=== PATIENT | female | born 1950 | race Caucasian/White ===

== ENCOUNTER → 2024-05-24 12:42 | Day surgery (SDC) | payer MEDICARE, OTHER, SELFPAY ==
[2024-05-24 14:13] LABS: ALT (SGPT) 25 U/L (0-35); AST (SGOT) 25 U/L (14-36); Albumin 4.4 g/dl (3.5-5.0); Alkaline Phosphatase 107 U/L (38-126); Blood Urea Nitrogen 26 mg/dl (7-17); Calcium 9.8 mg/dl (8.4-10.2); Carbon Dioxide 18 mmol/L (22-30); Chloride 99 mmol/L (98-107); Glucose 114 mg/dl (70-99); Potassium 5.7 mmol/L (3.5-5.1); Sodium 127 mmol/L (135-145); Total Bilirubin 0.8 mg/dl (0.2-1.3); eGFR 53.39
== END ==
LOC: SDSPAT 12:42
PROVIDERS: ATTENDING PHYSICIAN Student in an Organized Health Care Education/Training Program; FAMILY PHYSICIAN Family Medicine
DX: Z01.810 Encounter for preprocedural cardiovascular examination (principal); Z01.812 Encounter for preprocedural laboratory examination
CPT/HCPCS: 80053; 85025; 36415; 93005

== ENCOUNTER 2024-06-20 08:12 | Inpatient (IN) | payer MEDICARE, OTHER, SELFPAY ==
[2024-05-24 14:09] VITALS: BMI 35.9
--- NOTE | 2024-06-11 16:32 | PTCARENOTE ---
Feli Fuller at Surgeon office made aware.
[2024-06-18] VITALS (10 sets, daily range): BP systolic 98–144; BP diastolic 53–70; BMI 35.9
[2024-06-18 10:33] LABS: Glucose - Point of Care 166 mg/dl (70-99)
[2024-06-18] MEDS: CELEBREX 200 MG PO (10:49)
[2024-06-18] MEDS: TYLENOL 1000 MG PO (10:49)
[2024-06-18] MEDS: NORMOSOL-R 1000 IV (10:50)
[2024-06-18 12:42] LABS: Glucose - Point of Care 144 mg/dl (70-99)
[2024-06-18 13:54] LABS: Glucose - Point of Care 134 mg/dl (70-99)
--- NOTE | 2024-06-18 16:53 | W.PN.UPDATE ---
Update Note
Progress Note Update
s/p left tibiotalarcalcaneal arthrodesis with intramedullary nail
-NWB LLE, PT/OT consults
-Pain control prn, home meds sent to pharmacy including oxycodone and gabapentin for pain management
-Dressings C/D/I
-Ancef x 3 does or until discharge if D/Driss prior to 24 hours
-Will follow
[2024-06-18 16:56] LABS: Glucose - Point of Care 191 mg/dl (70-99)
[2024-06-18 17:43] LABS: Glucose - Point of Care 193 mg/dl (70-99)
--- NOTE | 2024-06-18 17:43 | HPS.HSE ---
Family Physician
-
Family Physician: INTERVIEWE UNKNOWN - PT NOT
Chief Complaint
-
Status post left tibiotalar calcaneal arthrodesis
History of Present Illness
73-year-old female status post left tibiotalar calcaneal arthrodesis with intramedullary nail who is currently in PACU. She currently is awake and oriented x 3 states has some slight discomfort to her left ankle but is in a current posterior OCL.
She had a nerve block while in the OR. She is able to wiggle her toes but currently does not have sensation yet back. Her toes are pink and warm with positive cap refill. She denies headache, sore throat, fever, chills, chest pain, palpitations,
cough, shortness of breath, abdominal pain, nausea, vomiting, diarrhea, urinary symptoms.
She has past medical history DVT post TKR 2006, HTN, HLD, DM2, normocytic anemia, iron deficiency anemia, hypothyroidism, chronic seasonal allergies, chronic postnasal drip, cardiac murmur, basal cell CA, diverticulitis, eczema.
Medical History
Past Medical History
Past Medical History: Reports Other
Additional Past Medical History:
DVT post TKR 2006
HTN
HLD
DM2
normocytic anemia
iron deficiency anemia
hypothyroidism
chronic seasonal allergies
chronic postnasal drip
cardiac murmur
basal cell CA,
diverticulitis
eczema
Past Surgical History: Reports Other
Additional Past Surgical History:
Right TKR 2019
Left TKR 2007
Social History
Tobacco: Non-smoker
Alcohol: None
Drug: None
Personal:
Living: With Family
Employment: Retired
Family History
Family History: Other (1 brother RA 50s,, father IN age 50s, mother valvular heart issues also history RA, 1 sister living history RA, 1 brother living and healthy)
Allergies / Home Medications
Allergies reflects when Allergies were last updated in [employer].
Home Medications with original date entered in [employer]
Allergy/Medication List:
Allergies
Allergy/AdvReac Type Severity Reaction Status Date / Time
crab Allergy Severe anaphylacti Verified 06/18/24 10:35
c
Penicillins Allergy Intermediate Hives Verified 06/18/24 10:35
iodine Allergy Unknown Verified 06/18/24 10:35
Home Medications
Calcium + Vitamin D 1 dose PO DAILY 05/23/24
Tumeric 500 mg PO DAILY 05/23/24
albuterol 90 mcg/actuation aerosol inhaler 1 mcg inhalation PRN PRN congestion/cough 05/23/24
aspirin 81 mg tablet 81 mg PO DAILY 05/23/24
atenolol 25 mg tablet 25 mg PO DAILY 05/23/24
atorvastatin 20 mg tablet 20 mg PO HS 05/23/24
desloratadine 5 mg tablet 5 mg PO DAILY 05/23/24
iron 1 tab PO DAILY 05/23/24
levothyroxine 112 mcg capsule 112 mcg PO DAILY 05/23/24
lisinopril 20 mg tablet 20 mg PO DAILY 05/23/24
metformin 500 mg tablet 500 mg PO BID 05/23/24
vitamins A,C,W-[id number]-fyiyqs 2,148 mcg-113 mg-45 mg-17.4 mg tablet (PreserVision AREDS) 1 tab PO DAILY 05/23/24
Review of Systems
-
History Source: Patient
A 12 point ROS was completed and negative except as noted: Yes
Constitutional: Denies Fever, Fatigue or Chills
EENT: Denies Sore Throat or Mouth Swelling
Respiratory: Denies Cough or Trouble Breathing
Cardiac: Denies Chest Pain, Diaphoresis, Palpitations or Syncope
Abdomen/GI: Denies Abdominal Pain, Nausea, Vomiting, Diarrhea, Constipated, Bloody Stools or Black Stools
: Denies Dysuria, Frequency, Flank Pain, Incontinence, Difficulty Voiding or Urgency
Musculoskeletal: Reports Joint Pain; Denies Muscle Pain
Skin: Denies Itching or Rash
Neurological: Denies Dizzy, Headache or Weakness
Endocrine: Reports No Symptoms
Hematologic/Lymphatic: Reports No Symptoms
Psych: Reports Calm
Physical Exam
Vital Signs
Vital Signs
Temp Pulse Resp BP Pulse Ox
97.6 F 63 16 144/70 97
06/18/24 10:42 06/18/24 10:42 06/18/24 10:42 06/18/24 10:42 06/18/24 10:42
Physical Exam
General: Comfortable and Conversant; No Fever or Chills
HEENT: NormoCephalic, Anicteric, Moist mucous membranes and PERRLA
Respiratory: Clear; No Wheezes, Rales or Rhonchi
Cardiac: S1/S2, Regular Rhythm and Murmur (2/6 systolic increased tricuspid area); No Rub, Gallop or Peripheral Edema
Breast: Deferred by me
GI: Soft, Non Tender, Non Distended, Normal Bowel Sounds and No Hepatosplenomegaly
Genito-urinary: Deferred by me
Musculoskeletal: No Clubbing, No Cyanosis and Other (Left lower extremity with posterior OCL splint from knee to foot, toes pink, warm no current sensation yet due to nerve block in OR, although is able to wiggle toes); No Edema, Left Upper
Extremity, Edema, Right Upper Extremity or Edema, Right Lower Extremity
Skin: Warm and Dry; No Rash
Neuro: AO x 3, Nonfocal/grossly intact, Cranial Nerves Intact and No Sensory Deficits; No Slurred Speech, Facial Droop or Tremors
Psych: Calm
Data Reviewed
-
Lab Data: Labs Reviewed by me
Impression/Plan
-
Impression/plan:
obs post procedure MedSurg
#Status post TTC arthrodesis with IM nailing
-Consult podiatry-Dr. Tameka
-Nonweightbearing left lower extremity
-Pain control with oxycodone/gabapentin
-Ancef IV x 3 doses per podiatry
-Consult PT/OT/case management lives in house with has chair glide to first floor where she will be sleeping
#Anemia-normocytic reports diagnosed in March 2024
#Iron deficiency
Hgb 9.7 on 06/14/2024
-Will repeat CBC this evening along with CMP
-Continue oral iron
-States has had colon Endo March 2024 that were negative
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
-Patient will be on prophylactic subcu Lovenox for DVT prevention
#HTN�benign
Continue lisinopril 20 mg daily, atenolol 25 mg daily with hold parameters
-Continue aspirin 81 mg daily
#DM 2
-Accu-Cheks with SSI, check HgbA1c
Hold metformin 500 mg twice daily
#HLD
Continue atorvastatin 20 mg at bedtime
#Hypothyroidism
-Continue levothyroxine 112 mcg p.o. daily
#Chronic postnasal drip
#Chronic allergies
-Continue desloratadine or equivalent
#Cardiac murmur hx
Other PMH:
Hx diverticulitis
Basal cell CA
Eczema
DVT prophylaxis
Subcu Lovenox
Full code
--- NOTE | 2024-06-18 17:44 | W.PN.UPDATE ---
Update Note
Progress Note Update
This serves as an addendum to the H&P dictated by Sumi Palomo on 06/18/2024.
I saw and examined the patient.
The UPHOLSTERY TECH or PA's note was reviewed and I agree with the note.
Comment:
Patient 73 years old female came into the hospital for elective podiatry surgery. She underwent left tibial talocalcaneal arthrodesis with intramedullary nail today on 06/18. Patient postop unremarkable and podiatry asked her to stay in the
hospital in observation. She currently denies any chest pain or shortness of breath. No fevers or chills. She was referred to hospitalist for further evaluation.
Physical exam:
General: Well Developed, Well Nourished and No Apparent Distress
HEENT: Normocephalic, Atraumatic and Moist Mucous Membranes
Respiratory: Clear to Auscultation; Negative Wheezes, Rales or Rhonchi
Cardiac: Regular Rhythm and S1/S2
GI: Soft, Nontender and Nondistended
Musculoskeletal: Postop findings in the left lower extremity. No Clubbing, No Cyanosis and No Edema
Neuro: Awake, Alert and Oriented
Psych: Calm
A/P:
Status post L tibiotalarcalcaneal arthrodesis with intramedullary nail--> pain control, nonweightbearing status left lower extremity, PT OT, antibiotics, podiatry consult.
--- NOTE | 2024-06-18 18:35 | PTCARENOTE ---
Patient received from CHEMICAL LIBRARIAN Tania @18:35 with Splint on lower left extremity (adaptic, 4x4s, kerlix, lap roll, splint and melanie wrap), VSS; will give detailed report to nightshift RN from the verbal report received from CHEMICAL LIBRARIAN.
[2024-06-18] MEDS: ANCEF 5 IV (21:18)
[2024-06-18] MEDS: LIPITOR 20 MG PO (21:18)
[2024-06-18 22:37] LABS: ALT (SGPT) 41 U/L (0-35); AST (SGOT) 50 U/L (14-36); Albumin 4.2 g/dl (3.5-5.0); Alkaline Phosphatase 122 U/L (38-126); Blood Urea Nitrogen 36 mg/dl (7-17); Calcium 9.6 mg/dl (8.4-10.2); Carbon Dioxide 18 mmol/L (22-30); Chloride 99 mmol/L (98-107); Estimated Creatinine Clearance 46 ml/min; Glucose 245 mg/dl (70-99); Potassium 5.7 mmol/L (3.5-5.1); Sodium 133 mmol/L (135-145); Total Bilirubin 0.6 mg/dl (0.2-1.3); Total Protein 6.8 g/dl (6.3-8.2); eGFR 48.09
[2024-06-18 22:44] LABS: % Basophils 0.2 % (0-2); % Immature Granulocytes 0.5 % (0-0.5); % Lymphocytes 4.1 % (20.5-51.1); % Monocytes 0.7 % (1.7-9.3); % Neutrophils 94.5 % (42.2-75.2); Absolute Immature Granulocytes 0.1 10^3/uL (0-0.05); Absolute Lymphocytes 0.8 10^3/uL (1.2-3.4); Absolute Monocytes 0.1 10^3/uL (0.1-0.6); Hematocrit 28.5 % (37.0-47.0); Hemoglobin 9.6 g/dL (12.0-16.0); Mean Corp Hgb Conc. 33.7 g/dL (33.0-37.0); Mean Corpuscular Hgb 30.6 pg (27.0-31.0); Mean Corpuscular Volume 90.8 fL (81.0-99.0); Mean Platelet Volume 9.2 fL (7.4-10.4); Nucleated Red Blood Cells % 0 %; Platelet Count 361 10^3/uL (130-400); Red Blood Cell Count 3.14 10^6/uL (4.20-5.40); Red Cell Dist. Width 13.6 % (11.5-14.5)
[2024-06-18] MEDS: NEURONTIN 300 MG PO (23:07)
[2024-06-18] MEDS: LOVENOX 40 MG SC (23:08)
[2024-06-18 23:47] LABS: Hepatitis C Antibody Negative (Negative)
[2024-06-19] VITALS (7 sets, daily range): BP systolic 97–119; BP diastolic 51–68; PULSE 65–69; O2SAT 94–96
[2024-06-19] MEDS: ANCEF 5 IV ×2 (05:03→13:10)
[2024-06-19] MEDS: SYNTHROID 112 MCG PO (05:03)
--- NOTE | 2024-06-19 07:22 | W.PN.UPDATE ---
Update Note
Progress Note Update
Patient is resting comfortably in bed this morning. She reports that her pain has been well controlled. She was able to get out of bed to the commode twice last night.
Directed exam of left lower extremity reveals a splint in place. No signs of surrounding skin breakdown. She is able to wiggle her toes. Sensation intact to light touch. Cap refill<2secs
POD#1 Left tibiotalar calcaneal arthrodesis with large bone graft harvest with intramedullary nail fixation under the direction of Dr. English
--NWB LLE. Ambulate with the assistance of a walker
--PT/OT
--Pain control as needed. Elevate and ice as needed
--Ancef while in house or x3 doses
--Maintain splint
--Lovenox while in house, can discharge on aspirin 325mg daily x4 weeks for DVT prophylaxis
--Postop pain medications have been sent to patient's outpatient pharmacy
--Follow up outpatient at scheduled appointment
--Ok for discharge when stable
[2024-06-19] MEDS: NEURONTIN 300 MG PO ×3 (08:07→21:28)
[2024-06-19] MEDS: LOW STRENGTH ASPIRIN 81 MG PO (08:07)
[2024-06-19] MEDS: CLARITIN CHILDREN'S 5 MG PO (08:08)
--- NOTE | 2024-06-19 11:19 | CM ---
Addendum entered by May Gan 06/19/24 12:02:
VN recs per therapy
Referral to [facility] and accepted for service SOC 06/21
Walker issued by therapy
TT/Dr Bliss requesting hard script
VN order on chart
Discharge Disposition- home with [facility] and new WW
Fax- (fax will only work starting with 1 per [facility])
Original Note:
CM met with pt bedside
Pt resides with her spouse in a 3SH, enters through basement level, OSTE
Stair glide to 1st floor where she will be staying while recovering
Pt is typically independent with her ADLs without any ADs, drives+
Has a SPC for use as needed, also has a WC, no walker
No financial insecurities
PCP- Gisel Garay
Rx- [facility] [place]
PT/OT pending
Pt is hopeful for home with [facility]
Will await outcome of evals
Discharge Disposition- home, likely with VN
--- NOTE | 2024-06-19 12:49 | W.PN.HOSP.TC ---
Today's Communication/Plan
-
Insulin management. Lokelma. Fluid restriction. IVF.
Assessment / Plan
Assessment / Plan
Physical exam:
General: Well Developed, Well Nourished and No Apparent Distress
HEENT: Normocephalic, Atraumatic and Moist Mucous Membranes
Respiratory: Clear to Auscultation; Negative Wheezes, Rales or Rhonchi
Cardiac: Regular Rhythm and S1/S2
GI: Soft, Nontender and Nondistended
Musculoskeletal: Postop findings in the left lower extremity. No Clubbing, No Cyanosis and No Edema
Neuro: Awake, Alert and Oriented
Psych: Calm
A/P:
#Status post TTC arthrodesis with IM nailing
-Consulted podiatry-Dr. English
-Nonweightbearing left lower extremity
-Pain control with oxycodone/gabapentin
-Ancef IV x 3 doses per podiatry
-Consult PT/OT/case management
-Interface Analyst/Ortho has cleared her for discharge today but there are several metabolic abnormalities that preclude her to go home including hyperglycemia, hyperkalemia, increased LFTs, renal insufficiency, hyponatremia, therefore she will need to be
monitored and manage accordingly. Of note, electrolyte abnormalities were noted on labs from last night so stat BMP was ordered, but since nothing was given last night, I expect the abnormalities would persist. Obtain twelve-lead EKG. IV fluids
gentle hydration while limit oral free water intake.
-Hold JESSICA inhibitor, statins, acetaminophen, and NSAIDs.
-Lokelma 10 g p.o. x 1 today if hyperkalemia persist.
-Discussed with at bedside
#Anemia-normocytic reports diagnosed in March 2024
#Iron deficiency
Hgb 9.7 on 06/14/2024--> 9.6 today
-Will repeat CBC this evening along with CMP
-Continue oral iron
-States has had colon Endo March 2024 that were negative
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
-Patient will be on prophylactic subcu Lovenox for DVT prevention
#HTN�benign
Continue lisinopril 20 mg daily, atenolol 25 mg daily with hold parameters. Hold lisinopril due to renal failure and hyperkalemia
-Continue aspirin 81 mg daily
#DM 2
-Start Accu-Cheks with SSI moderate coverage today 06/19, check HgbA1c in am
Cont hold metformin 500 mg twice daily and resum in am
#HLD
Continue atorvastatin 20 mg at bedtime
#Hypothyroidism
-Continue levothyroxine 112 mcg p.o. daily
#Chronic postnasal drip
#Chronic allergies
-Continue desloratadine or equivalent
#Cardiac murmur hx
Other PMH:
Hx diverticulitis
Basal cell CA
Eczema
DVT prophylaxis
Subcu Lovenox
Full code
Total time spent on today's encounter was 52 minutes which included time spent in counseling the patient/family regarding diagnosis and treatment plan as listed above, goals of care, and symptom management. Case was discussed with nursing staff,
specialists, and care coordinators/case management. All labs and imaging personally reviewed by me. Remainder the time spent in detailed review of previous records, lab data, imaging, and other medical provider documentation.
Anticipated Discharge: 24 - 48 hours
Subjective/Interval History
-
Date of Service: June 19, 2024
Patient mild discomfort in her foot. Denies chest pain or shortness of breath. Afebrile. She tells me that she is 'borderline diabetic'.
Objective Data
-
Vital Signs:
Vital Signs
Temp Pulse Resp BP Pulse Ox
97.7 F 66 18 108/51 98
06/19/24 11:05 06/19/24 11:05 06/19/24 11:05 06/19/24 11:05 06/19/24 11:05
I&O
06/18/24 06/19/24 06/20/24
06:59 06:59 06:59
Intake Total 710 / 710
Balance 710 / 710
[2024-06-19] MEDS: LOKELMA 10 GRAM PO (13:10)
[2024-06-19] MEDS: NSS 1000 IV (13:31)
[2024-06-19 14:14] LABS: ALT (SGPT) 47 U/L (0-35); AST (SGOT) 47 U/L (14-36); Albumin 4.1 g/dl (3.5-5.0); Alkaline Phosphatase 121 U/L (38-126); Blood Urea Nitrogen 39 mg/dl (7-17); Calcium 9.5 mg/dl (8.4-10.2); Carbon Dioxide 20 mmol/L (22-30); Chloride 99 mmol/L (98-107); Estimated Creatinine Clearance 40 ml/min; Glucose 209 mg/dl (70-99); Sodium 133 mmol/L (135-145); Total Bilirubin 0.6 mg/dl (0.2-1.3); Total Protein 6.6 g/dl (6.3-8.2); eGFR 39.97
[2024-06-19 15:16] LABS: Osmolality Urine 279 mOsm/kg (300-900); Urine Sodium 28 mmol/L (30-90)
[2024-06-19 16:51] LABS: Glucose - Point of Care 209 mg/dl (70-99)
[2024-06-19] MEDS: NOVOLOG FLEXPEN-MODERATE RESISTANCE 3 UNITS SC (16:56)
[2024-06-19] MEDS: LOVENOX 40 MG SC (16:57)
[2024-06-19 21:54] LABS: Glucose - Point of Care 160 mg/dl (70-99)
[2024-06-20] MEDS: NSS 1000 IV (01:19)
[2024-06-20] MEDS: SYNTHROID 112 MCG PO (05:30)
--- NOTE | 2024-06-20 07:44 | W.PN.UPDATE ---
Update Note
Progress Note Update
Ms. Moody is POD2 following her left tibiotalar calcaneal arthrodesis performed by Dr. English. She is resting comfortably in bed this morning, and endorses minimal pain in her ankle. She was kept overnight due to metabolic abnormalities.
Directed exam of left lower extremity reveals a splint in place. No signs of surrounding skin breakdown. She is able to wiggle her toes. Sensation intact to light touch. Cap refill<2secs
POD2 Left tibiotalar calcaneal arthrodesis with large bone graft harvest with intramedullary nail fixation under the direction of Dr. English
--NWB LLE. Ambulate with the assistance of a walker. PT/OT while patient admitted.
--Pain control as needed. Elevate and ice as needed.
--Ancef while in house or x3 doses.
--Maintain splint.
--Lovenox while in house, can discharge on aspirin 325mg daily x4 weeks for DVT prophylaxis.
--Postop pain medications have been sent to patient's outpatient pharmacy.
--Ok for discharge when stable.
[2024-06-20 07:45] VITALS: BP 111/63
[2024-06-20 07:52] LABS: Glucose - Point of Care 160 mg/dl (70-99)
[2024-06-20 08:01] LABS: ALT (SGPT) 37 U/L (0-35); AST (SGOT) 35 U/L (14-36); Albumin 3.5 g/dl (3.5-5.0); Alkaline Phosphatase 125 U/L (38-126); Blood Urea Nitrogen 30 mg/dl (7-17); Calcium 8.8 mg/dl (8.4-10.2); Carbon Dioxide 20 mmol/L (22-30); Chloride 107 mmol/L (98-107); Direct Bilirubin 0.2 mg/dl (0.0-0.4); Estimated Creatinine Clearance 51 ml/min; Glucose 148 mg/dl (70-99); Potassium 4.5 mmol/L (3.5-5.1); Sodium 137 mmol/L (135-145); Total Bilirubin 0.7 mg/dl (0.2-1.3); eGFR 53.39
[2024-06-20 08:21] LABS: Glycohemoglobin (HgbA1c) 6.6 % (4.0-5.6)
[2024-06-20 08:27] LABS: % Basophils 0.6 % (0-2); % Eosinophils 5.5 % (0-6); % Immature Granulocytes 0.6 % (0-0.5); % Lymphocytes 19.9 % (20.5-51.1); % Monocytes 7.6 % (1.7-9.3); % Neutrophils 65.8 % (42.2-75.2); Absolute Basophils 0.1 10^3/uL (0-0.2); Absolute Eosinophils 0.5 10^3/uL (0-0.7); Absolute Immature Granulocytes 0.1 10^3/uL (0-0.05); Absolute Lymphocytes 1.7 10^3/uL (1.2-3.4); Absolute Monocytes 0.7 10^3/uL (0.1-0.6); Absolute Neutrophils 5.8 10^3/uL (1.4-6.5); Hematocrit 24.3 % (37.0-47.0); Hemoglobin 7.9 g/dL (12.0-16.0); Mean Corp Hgb Conc. 32.5 g/dL (33.0-37.0); Mean Corpuscular Hgb 30.5 pg (27.0-31.0); Mean Corpuscular Volume 93.8 fL (81.0-99.0); Mean Platelet Volume 9.7 fL (7.4-10.4); Nucleated Red Blood Cells % 0 %; Platelet Count 305 10^3/uL (130-400); Red Blood Cell Count 2.59 10^6/uL (4.20-5.40); Red Cell Dist. Width 14.1 % (11.5-14.5); White Blood Cell Count 8.8 10^3/uL (4.8-10.8)
[2024-06-20] MEDS: NOVOLOG FLEXPEN-MODERATE RESISTANCE 1 UNITS SC ×2 (08:51→13:06)
[2024-06-20] MEDS: NEURONTIN 300 MG PO (08:53)
[2024-06-20] MEDS: LOW STRENGTH ASPIRIN 81 MG PO (09:46)
[2024-06-20] MEDS: CLARITIN CHILDREN'S 5 MG PO (09:46)
--- NOTE | 2024-06-20 11:31 | CM ---
Patient seen bedside.
PT/OT recommending home with VN.
[facility] to follow.
Spoke with Samantha at [facility], additional information via [employer].
Patient for d/c home today.
IMM completed and added to chart.
Discharge Disposition- home with [facility] and new [facility]
Fax- (fax will only work starting with 1 per [facility])
--- NOTE | 2024-06-20 11:33 | W.PN.HOSP.TC ---
Today's Communication/Plan
-
Discharge planning today
Assessment / Plan
Assessment / Plan
Physical exam:
General: Well Developed, Well Nourished and No Apparent Distress
HEENT: Normocephalic, Atraumatic and Moist Mucous Membranes
Respiratory: Clear to Auscultation; Negative Wheezes, Rales or Rhonchi
Cardiac: Regular Rhythm and S1/S2
GI: Soft, Nontender and Nondistended
Musculoskeletal: Postop findings in the left lower extremity. No Clubbing, No Cyanosis and No Edema
Neuro: Awake, Alert and Oriented
Psych: Calm
A/P:
#Status post TTC arthrodesis with IM nailing
-Consulted podiatry-Dr. English
-Nonweightbearing left lower extremity
-Pain control with oxycodone/gabapentin
-Ancef IV x 3 doses per podiatry
-Consult PT/OT/case management
Yesterday on 06/19:
-Medical Payment Poster/Ortho has cleared her for discharge today but there are several metabolic abnormalities that preclude her to go home including hyperglycemia, hyperkalemia, increased LFTs, renal insufficiency, hyponatremia, therefore she will need to be
monitored and manage accordingly. Of note, electrolyte abnormalities were noted on labs from last night so stat BMP was ordered, but since nothing was given last night, I expect the abnormalities would persist. Obtain twelve-lead EKG. IV fluids
gentle hydration while limit oral free water intake.
-Hold JESSICA inhibitor, statins, acetaminophen, and NSAIDs.
-Lokelma 10 g p.o. x 1 today if hyperkalemia persist.
-Discussed with at bedside.
Today on 06/20--> patient's metabolic abnormalities much improved after fluids and Lokelma and holding medications. Okay for discharge today from medical standpoint. Reached out to podiatry and they sent over narcotics to her pharmacy.
#Anemia-normocytic reports diagnosed in March 2024
#Iron deficiency
Hgb 9.7 on 06/14/2024--> 7.9 today--> likely dilutional and component of acute postop blood loss. No need for transfusion. Check hemoglobin as outpatient
-Continue oral iron
-States has had colon Endo March 2024 that were negative
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
-Patient will be on prophylactic subcu Lovenox for DVT prevention
#HTN�benign
Continue lisinopril 20 mg daily, atenolol 25 mg daily with hold parameters. Hold lisinopril due to renal failure and hyperkalemia, but can resume as outpatient as long as monitor renal function and potassium closely.
-Continue aspirin 81 mg daily
#DM 2
-Start Accu-Cheks with SSI moderate coverage today 06/19, check HgbA1c in am
Cont hold metformin 500 mg twice daily and resum in am
#HLD
Continue atorvastatin 20 mg at bedtime
#Hypothyroidism
-Continue levothyroxine 112 mcg p.o. daily
#Chronic postnasal drip
#Chronic allergies
-Continue desloratadine or equivalent
#Cardiac murmur hx
Other PMH:
Hx diverticulitis
Basal cell CA
Eczema
DVT prophylaxis
Subcu Lovenox
Full code
Anticipated Discharge: Today
Subjective/Interval History
-
Date of Service: June 20, 2024
No new events.
Objective Data
-
Labs:
Laboratory Results
06/20/24 06/20/24
06:46 06:47
WBC 8.8
Hgb 7.9 L
Hct 24.3 L
Plt Count 305
Sodium 137
Potassium 4.5
Chloride 107
Carbon Dioxide 20 L
BUN 30 H
Creatinine 1.1 H
Glucose 148 H
Calcium 8.8
Total Bilirubin 0.7
AST 35
ALT 37 H
Alkaline Phosphatase 125
Vital Signs:
Vital Signs
Temp Pulse Resp BP Pulse Ox
99 F 93 18 111/63 98
06/20/24 07:45 06/20/24 07:45 06/20/24 07:45 06/20/24 07:45 06/20/24 07:45
I&O
06/19/24 06/20/24 06/21/24
06:59 06:59 06:59
Intake Total 710 / 710 2290 / 2290
Balance 710 / 710 2290 / 2290
--- NOTE | 2024-06-20 11:37 | W.DCSUMMARY ---
Discharge Summary
Discharge Data
Date of Admission: 06/20/24
Date of Discharge: 06/20/24
-
Pending Results: No
Hospital Course
Patient 73 years old history of hypertension, hyperlipidemia, diabetes mellitus presented to the elective left tibiotalar calcaneal arthrodesis with intramedullary nail who had surgery done by playground equipment erector and we were consulted for admission and
further evaluation. Patient did well from postop standpoint. She did have complications of GARY, hyperkalemia, increased LFTs, hyponatremia, and hyperglycemia. Medications for diabetes were adjusted and she improved. JESSICA inhibitor, statins,
acetaminophen, and NSAIDs were all held. She was given IV fluids. She was also given Lokelma. Potassium, renal function, sodium, and rest of electrolytes improved. LFTs also improved. Patient went for cell count trending down appropriately.
Her hemoglobin dropped likely related to acute blood loss postop but no signs of active bleeding. She did not require any blood transfusions. Patient metabolic derangements improved substantially. Podiatry sent narcotic pain meds to her pharmacy.
She is currently stable for discharge and she will require close follow-up as outpatient for follow-up labs and follow-up with primary care and podiatry as outpatient. No other events were noticed. She will be discharged in stable condition today.
Discharge duration: 32 minutes
Discharge Plan
-
Patient Disposition: Home (Routine Discharge)
Discharge Diagnosis/Procedures: Left tibiotalar calcaneal arthrodesis with large bone graft harvest with intramedullary nail fixation.
Diet: Diabetic, Carb Controlled
Activity: Other activity
Additional Activity: As instructed by her playground equipment erector/Ortho.
Blood Work: Please PCP to order CBC, BMP within 1 week
Referrals:
Primary care, provider [Other] (See less than 1 week)
Harry English DPM [Active] - in one to two weeks
Prescriptions:
New
aspirin 325 mg tablet
325 mg PO DAILY Qty: 30 0RF
Continued
metformin 500 mg Tablet
500 mg PO BID
atorvastatin 20 mg Tablet
20 mg PO HS
lisinopril 20 mg Tablet
20 mg PO DAILY
atenolol 25 mg Tablet
25 mg PO DAILY
desloratadine 5 mg Tablet
5 mg PO DAILY
albuterol 90 mcg/actuation Aerosol
1 mcg INHALATION PRN PRN (Reason: congestion/cough)
levothyroxine 112 mcg Capsule
112 mcg PO DAILY
aspirin 81 mg Tablet
81 mg PO DAILY
PreserVision AREDS 2,148 mcg-113 mg-45 mg-17.4mg Tablet
1 tab PO DAILY
Calcium + Vitamin D
1 dose PO DAILY
Tumeric
500 mg PO DAILY
iron
1 tab PO DAILY
Discharge Orders:
Discharge Patient (As Directed); Ordered 06/20/24
Ordered By: Clarke Ziegler
Discharge Date and Time
Discharge Date/Time: 06/20/24 14:49
Print Language: HUNGARIAN
[2024-06-20 11:57] LABS: Glucose - Point of Care 195 mg/dl (70-99)
[2024-06-20 14:11] VITALS: BP 139/65
== END 2024-06-20 14:49 | disposition home health service (06) | DRG 982 ==
LOC: 2 SOUTH 08:12
PROVIDERS: Clinical Nurse Specialist Family Health; Student in an Organized Health Care Education/Training Program; ADMITTING PHYSICIAN Hospitalist
PROC: 0SGG07Z Fusion of Left Ankle Joint with Autologous Tissue Substitute, Open Approach (ICD-10-PCS; 2024-06-18)
PROC: 0QBK0ZZ Excision of Left Fibula, Open Approach (ICD-10-PCS; 2024-06-18)
PROC: 0SGG04Z Fusion of Left Ankle Joint with Internal Fixation Device, Open Approach (ICD-10-PCS; 2024-06-18)
DX: N17.9 Acute kidney failure, unspecified (principal); D62 Acute posthemorrhagic anemia; E87.1 Hypo-osmolality and hyponatremia; E11.65 Type 2 diabetes mellitus with hyperglycemia; M19.072 Primary osteoarthritis, left ankle and foot; M62.462 Contracture of muscle, left lower leg; E78.5 Hyperlipidemia, unspecified; E03.9 Hypothyroidism, unspecified; E87.5 Hyperkalemia; D50.9 Iron deficiency anemia, unspecified; M21.42 Flat foot [pes planus] (acquired), left foot; M67.02 Short Achilles tendon (acquired), left ankle; I10 Essential (primary) hypertension; J30.2 Other seasonal allergic rhinitis; L30.9 Dermatitis, unspecified; R79.89 Other specified abnormal findings of blood chemistry; Z86.718 Personal history of other venous thrombosis and embolism; Z88.0 Allergy status to penicillin; Z96.653 Presence of artificial knee joint, bilateral; Z85.828 Personal history of other malignant neoplasm of skin; Z79.84 Long term (current) use of oral hypoglycemic drugs; Z79.82 Long term (current) use of aspirin; Z79.890 Hormone replacement therapy
CPT/HCPCS: 73610; 76000; 80048; 80053; 80076; 82962; 83036; 83935; 84300; 84443; 85025; 86803; 93005; 97162; 97166; C1713; C1769